=== PATIENT | male | born 1970 | race Caucasian/White ===

== ENCOUNTER 2019-02-09 07:43 | Day surgery (SDC) | payer OTHER, SELFPAY ==
[2019-01-20 15:28] VITALS: BMI 35.9
[2019-02-09] VITALS (10 sets, daily range): BP systolic 133–186; BP diastolic 74–110; PULSE 52–69; RESP 12–18; TEMP 36.1–36.4; O2SAT 82–98; BMI 35.6
--- NOTE | 2019-02-09 07:55 | EKG12_ITS ---
Test Reason : PREOP Blood Pressure : / mmHG Vent. Rate : 054 BPM Atrial Rate : 054 BPM P-R Int : 160 ms QRS Dur : 078 ms QT Int : 414 ms P-R-T Axes : -16 -23 014 degrees QTc Int : 392 ms Sinus bradycardia Otherwise normal ECG When compared with ECG of 03-JUL-2010 13:12, Nonspecific T wave abnormality no longer evident in Lateral leads Confirmed by MER REYNAGA, COLBY ([id number]), online content editor ABENA CUENCA ([id number]) on 02/13/2019 9:50:47 AM Referred By: David Galloway Confirmed By:COLBY DEL ANGEL MD
--- NOTE | 2019-02-09 08:50 | DCINST_ITS ---
Discharge Diet: Light diet - advance as tolerated - if you have questions about your diet instructions, please talk to you doctor. Discharge Activity: May Not Drive - for 3-5 days or while taking narcotic pain medicine. May shower in (days): 1 Lifting Restrictions: 10 pounds Call your doctor if your incision/area has: Continuous Slow Oozing, Sudden Increased Bleeding, Increased Pain/ Swelling, Increased Redness, Foul Smelling Discharge Call your doctor if you observe: Fever of 101 or Higher Suture Line Care: Avoid Pulling/Pushing, Avoid Pinching/Bending Additional Dressing/Incision Instructions:: Change or remove dressing in 4 days. Leave steri-strips in place for 1 week. Allergies/Adverse Reactions: Allergies Sulfa (Sulfonamide Antibiotics) Allergy (Mild, Verified 02/02/19 09:26) Hives Medications to take at Discharge latanoprost 0.005 % eye drops 1 drp OPHTHALMIC QPM 01/20/19 losartan 100 mg tablet 100 mg PO DAILY 01/20/19 propranolol ER 160 mg capsule,24 hr,extended release 160 mg PO DAILY 01/20/19 Hydrocodone Bitart/Apap 5-325 [Chapin 5MG-325MG] 1 tablet PO Q4H PRN PRN 2 Days #8 tablet 02/09/19 The following prescriptions were given: Hydrocodone Bitart/Apap 5-325 [Chapin 5MG-325MG] 1 tablet PO Q4H PRN PRN 2 Days #8 tablet PRN Reason: Pain Primary Care Physician: Rafiq Ulrich MD [Primary Care Provider] - Test Results: Test results from this visit will be discussed in further detail at your follow- up appointment, if applicable. Please Follow Up With: David Galloway MD - [phone] When: Call to make an appointment to be seen in about 10 days.
[2019-02-09] MEDS: Cefazolin 2 GM in 0.9% Normal Saline 100 ML IV (08:52)
--- NOTE | 2019-02-09 09:08 | RAD_ITS ---
STUDY: CHOLANGIOGRAM REASON FOR EXAM: Male, 48 years old. Flank pain Cholecystectomy. FLUOROSCOPY TIME (if supplied): (0:13) minutes/seconds TECHNIQUE: Intraoperative fluoroscopy. For intraoperative views. COMPARISON: None. FINDINGS: There is opacification of cystic duct and common bile duct. No filling defects are seen the common bile duct to suggest retained stone. Contrast flows easily into the duodenum. RAD/Cholangiogram/ O R,Initial IMPRESSION: There is no evidence of retained stones in the common bile duct. Electronically Signed: Niki Henry, at 15:57 EDT Tel , Service support ,
--- NOTE | 2019-02-09 09:50 | GALL_PTH ---
PATIENT: BO LEWIS LOC: [facility] [place] U#:[id number] AGE/SX: 48/M ROOM: RE02/09/[address]: Dr. David Galloway MD : 1970 BED: DIS: 02/09/2019 SPEC #: [id number] RECD: 02/09/19 11:27 STATUS: KATE MCBRIDEBecky #: [id number] LANDON: 02/09/19 09:[address]: David Galloway DEPT: SURGICAL PATHOLOGY RECD BY: Geovanni Bynum ENTERED: 02/09/19 12:09 SP TYPE: CHIKA GUERRA DR: Dr. Rafiq Ulrich MD Tissues: Gallbladder, NOS Procedures: Surgery Specimen Level III HEADER OPERATION: Laparoscopic cholecystectomy with intraoperative cholangiogram PRE-OP DIAGNOSIS: Chronic cholecystitis, gallbladder polyp TISSUE SUBMITTED: Gallbladder MICROSCOPIC DIAGNOSIS Gallbladder, cholecystectomy: Cholesterolosis, chronic cholecystitis and cholelithiasis. AM:rubén 02/10/19 MICROSCOPIC DESCRIPTION Slides are reviewed. GROSS DESCRIPTION Received is one container labeled with the patient's name and designated gallbladder. The specimen consists of a gallbladder measuring 6 x 3 x 1.5 cm. The external surface is smooth and glistening. Focally, it is granular, hemorrhagic and contains cautery artifact. The lumen of the gallbladder contains yellow-green mucoid bile and black calculi ranging in size 0.1 to 0.6 cm. The mucosa is bile-stained and without any mass lesions. The gallbladder wall averages 0.2 cm in thickness and is free of mass lesions. Ruling Machine Feeder sections of the gallbladder and the cystic duct are submitted in one cassette. / AM:rubén 02/09/19 TC:3 CPT: 06925
--- NOTE | 2019-02-09 09:58 | PCM.OPRPT ---
Problem List (1) Chronic cholecystitis Status: Chronic Report of Operation Date of Procedure: 02/09/19 Pre-Operative Diagnosis: Chronic cholecystitis possible cholelithiasis versus gallbladder polyp Post-Operative Diagnosis: Same Surgery/Procedure Performed:: Laparoscopic cholecystectomy with cholangiograms Description of Surgical Findings:: Timeout and informed consent was obtained. 48-year-old gent was taken out from placement table underwent general anesthesia. Ancef 2 g given intravenous preoperatively. The abdomen sterilely prepped and draped. 0.5% Marcaine was used as a local anesthetic. Throughout the procedure total 30 cc was used. Skin sites were pre-anesthetized. A vertical infraumbilical incision was created holding sutures of 0 Vicryl placed varies needle inserted saline drop test performed the abdomen was insufflated with CO2 to a pressure of 10 mmHg pressure. To me trocar inserted 10 lap scope inserted no ventral trocar injuries under direct visitation 5-minute trochars were placed in the epigastric mid abdomen right upper quadrant. The gallbladder had some mild adhesions of omentum to it which could be bluntly dissected free. The mid and apical portion of the gallbladder appeared to be thickened consistent with chronic inflammation. The infundibular area of the gallbladder was nicely dissected free. The critical view was rapidly identified. The cystic duct and cystic artery nicely clearly identified. 2 hemo-lock clips were placed proximally 1 distally on the cystic artery prior to transecting it. Hemo-lock clip was placed on the cystic duct incision made in the cystic duct and through a 14-gauge Angiocath clench Tyson catheter was inserted. Fluoroscopically controlled clench grams were obtained demonstrating normal ductal anatomy and free flow into the small bowel. The clench Tyson catheter was removed and 2 additional hemoclips were placed on the cystic duct prior to transecting it. There was a posterior cystic artery this was secured with a hemo-lock clip. The gallbladder was rather tediously dissected free from the liver bed. There was evidence suggesting chronic inflammation edema and adherence. There were no stone spillage. Very small amount of bile spillage. The gallbladder was completely released and placed him in a retrieval bag. The right upper quadrant was irrigated and aspirated free of excess fluid. A piece of fibrillar was placed in the liver bed as the last portions of dissection was rather tedious due to the amount of inflammation into the liver bed and a portion of the liver bed was taken with the specimen. Hemostasis was nicely intact the fibular nicely was in position. Pressure was held for hemostasis to assure. The right upper quadrant was aspirated free. The gallbladder was exited at the umbilicus. The right upper quadrant was again inspected and noted to be completely hemostatic. The abdomen was allowed to deflate his CO2 trochars removed under visualization. The fascia at the umbilicus approximated interrupted 2-0 Vicryl [id number] suture. Skin edges were approximated interrupted 4 Monocryl subdermal stitches. Steri-Strips and Telfa and OpSite dressings were applied. Sponge and instrument and needle counts were reported the surgeon be correct. Blood loss was minimal. Specimen gallbladder. Drains none. Blood loss minimal. The patient was taken to the recovery area in satisfactory condition. David Galloway M.D., F.A.C.S. Type of Anesthesia:: General Anesthesiologist: Baldomero Brannon
[2019-02-09] MEDS: Bupivacaine Mpf 0.5% 30 ML VIAL (10:02)
--- NOTE | 2019-02-09 10:02 | OP.PCM_ITS ---
Problem List (1) Chronic cholecystitis Status: Chronic Report of Operation Date of Procedure: 02/09/19 Pre-Operative Diagnosis: Chronic cholecystitis possible cholelithiasis versus gallbladder polyp Post-Operative Diagnosis: Same Surgery/Procedure Performed:: Laparoscopic cholecystectomy with cholangiograms Description of Surgical Findings:: Timeout and informed consent was obtained. 48-year-old gent was taken out from placement table underwent general anesthesia. Ancef 2 g given intravenous preoperatively. The abdomen sterilely prepped and draped. 0.5% Marcaine was used as a local anesthetic. Throughout the procedure total 30 cc was used. Skin sites were pre-anesthetized. A vertical infraumbilical incision was created holding sutures of 0 Vicryl placed varies needle inserted saline drop test performed the abdomen was insufflated with CO2 to a pressure of 10 mmHg pressure. To me trocar inserted 10 lap scope inserted no ventral trocar injuries under direct visitation 5-minute trochars were placed in the epigastric mid abdomen right upper quadrant. The gallbladder had some mild adhesions of omentum to it which could be bluntly dissected free. The mid and apical portion of the gallbladder appeared to be thickened consistent with chronic inflammation. The infundibular area of the gallbladder was nicely dissected free. The critical view was rapidly identified. The cystic duct and cystic artery nicely clearly identified. 2 hemo-lock clips were placed proximally 1 distally on the cystic artery prior to transecting it. Hemo-lock clip was placed on the cystic duct incision made in the cystic duct and through a 14- gauge Angiocath clench Tyson catheter was inserted. Fluoroscopically controlled clench grams were obtained demonstrating normal ductal anatomy and free flow into the small bowel. The clench Tyson catheter was removed and 2 additional hemoclips were placed on the cystic duct prior to transecting it. There was a posterior cystic artery this was secured with a hemo-lock clip. The gallbladder was rather tediously dissected free from the liver bed. There was evidence suggesting chronic inflammation edema and adherence. There were no s tone spillage. Very small amount of bile spillage. The gallbladder was completely released and placed him in a retrieval bag. The right upper quadrant was irrigated and aspirated free of excess fluid. A piece of fibrillar was placed in the liver bed as the last portions of dissection was rather tedious due to the amount of inflammation into the liver bed and a portion of the liver bed was taken with the specimen. Hemostasis was nicely intact the fibular nicely was in position. Pressure was held for hemostasis to assure. The right upper quadrant was aspirated free. The gallbladder was exited at the umbilicus. The right upper quadrant was again inspected and noted to be completely hemostatic. The abdomen was allowed to deflate his CO2 trochars removed under visualization. The fascia at the umbilicus approximated interrupted 2-0 Vicryl [id number] suture. Skin edges were approximated interrupted 4 Monocryl subdermal stitches. Steri-Strips and Telfa and OpSite dressings were applied. Sponge and instrument and needle counts were reported the surgeon be correct. Blood loss was minimal. Specimen gallbladder. Drains none. Blood loss minimal. The patient was taken to the recovery area in satisfactory condition. David Galloway M.D., F.A.C.S. Type of Anesthesia:: General Anesthesiologist: Baldomero Brannon
[2019-02-09] MEDS: HYDROcodone Bitartrate/Apap 5/325 Tablet PO (13:28)
== END 2019-02-09 14:26 | disposition home or self-care (01) ==
LOC: SDC 07:44 → AC 07:45
PROVIDERS: Family Provider Family Medicine; PCP Family Medicine; Referring Provider Surgery; Visit Provider Surgery
PROC: (CPT 47610; principal; 2019-02-09 09:30)
DX: K80.10 Calculus of gallbladder with chronic cholecystitis without obstruction (principal); I10 Essential (primary) hypertension; Z79.899 Other long term (current) drug therapy; Z87.891 Personal history of nicotine dependence
CPT/HCPCS: 47563; 74300; 76000; 88304; 93005; J7120; A4216; J2405

== ENCOUNTER 2020-07-22 05:28 | Day surgery (SDC) | payer OTHER, SELFPAY ==
[2019-02-09 08:27] VITALS: BMI 35.6
[2020-07-22] VITALS (10 sets, daily range): BP systolic 116–157; BP diastolic 78–121; PULSE 61–71; RESP 16; TEMP 35.8–36.2; O2SAT 92–100; BMI 36.3
[2020-07-22] MEDS: Lactated Ringers 1,000 ML 100 ML IV (06:11)
--- NOTE | 2020-07-22 06:21 | PCM.HP.STD ---
Problem List (1) Screening for intestinal cancer Status: Acute History of Present Illness Date of Admission: 07/22/20 The patient is a 49 year old M who presents for screening colonoscopy today. His most recent colonoscopy was 10 years ago. He has a family history of a maternal grandmother who had colon cancer. He presents via open access. He has not had any GI symptoms. No abdominal pain. No bright red blood per rectum or melena. No weight loss. Past Medical History Past Medical History (Chronic Problems): Chronic Problems (Last Updated 01/20/19 @ 15:25 by Venita Reyna) Chronic cholecystitis (Chronic) Medical History: Medical History (Last Updated 01/20/19 @ 15:25 by Venita Reyna) Gallbladder polyp (Acute) K82.4 Chronic cholecystitis (Chronic) K81.1 Hemorrhoid K64.9 HTN (hypertension) I10 Allergies Sulfa (Sulfonamide Antibiotics) Allergy (Mild, Verified 07/22/20 05:43) Hives Home Medications: Ambulatory Orders Medication Instructions Recorded latanoprost 0.005 % eye drops 1 drp OPHTHALMIC QPM 01/20/19 losartan 100 mg tablet 100 mg PO DAILY 01/20/19 propranolol 160 mg capsule,24 160 mg PO DAILY 01/20/19 hr,extended release Multivitamin with Minerals 1 tab PO DAILY 07/22/20 [Multiple Vitamin] Surgical History: Surgical History (Last Updated 02/19/19 @ 09:30 by Venita Reyna) History of carpal tunnel release Z98.890 History of cholecystectomy Onset Date: ~01/2019 Z90.49 History of colonoscopy Onset Date: ~2009 Z98.890 Smoking Status: Never smoker Review of Systems Constitutional: Denies: Fever HEENT: Denies: Difficulty Swallowing Cardiovascular: Denies: Chest Pain Respiratory: Denies: Cough Gastrointestinal: Denies: Abdominal Pain, Melena Endocrine: Denies: Change in Body Habitus VTE Information - Inpt Only VTE Present on Admission: No Patient Problems: Active and Suspected Problems (Last Updated 01/20/19 @ 15:25 by Venita Reyna) Screening for intestinal cancer (Acute) - Physical Exam Vitals/I&O's: Vital Signs Temp Pulse Resp BP Pulse Ox 97.1 F L 64 16 129/84 H 99 07/22/20 05:47 07/22/20 05:47 07/22/20 05:47 07/22/20 05:47 07/22/20 05:47 Oxygen Delivery Method Room Air Weight: 218 lb 0.595 oz Body Mass Index (BMI) 36.3 General: Alert, Oriented x3, Cooperative, No apparent distress HEENT: Atraumatic Lungs: Clear to auscultation, Normal air movement Cardiovascular: Regular rate, Regular Rhythm Abdomen: Bowel Sounds Present, Soft, Non Tender, Distended, Obese Extremities: No Calf Tenderness Psych/Mental Status: Normal Affect Current Medications Lactated Ringer's () 1,000 mls @ 100 mls/hr IV .Q10H KATY Last Admin: 07/22/20 06:11 Dose: 100 mls/hr Documented by: Assessment/Plan All Active Problems (Last Updated 01/20/19 @ 15:25 by Venita Reyna) Screening for intestinal cancer (Acute) History of colonoscopy (Acute ~2009) Gallbladder polyp (Acute) I recommend to the patient a screening colonoscopy with possible biopsy or polypectomy is indicated. He is aware of the technique, benefit, risk, alternatives. He presents via open access. We will proceed as noted. David Galloway M.D., F.A.C.S.
--- NOTE | 2020-07-22 06:45 | OP.CCLET_ITS ---
07/22/2020 Rafiq Ulrich Md Re : Colonoscopy procedure for Jose Manuel Das Mojgan This procedure was performed on Wednesday, July 22, 2020. My impressions and recommendations are as follows: Impressions : - Anal stricture, non-thrombosed internal hemorrhoids and internal hemorrhoids that prolapse with straining, but spontaneously regress to the resting position (Grade II) found on digital rectal exam. - Diverticulosis in the sigmoid colon. - The examination was otherwise normal. - No specimens collected. Recommendations : - Discharge patient to home. - Resume previous diet. - Continue present medications. - Repeat colonoscopy in 10 years for screening purposes. My findings are described in the full procedure note, which is enclosed. If I can be of further assistance, please feel free to contact me at Doctor phone number(s): Work: . Sincerely, David Galloway MD 07/22/2020 6:44:10 AM This report has been signed electronically.
--- NOTE | 2020-07-22 06:45 | OP.COLON_ITS ---
Patient Name: Jose Manuel Hunter Procedure Date: 07/22/2020 6:02 AM Date of : 1970 Age: 49 Procedure: Colonoscopy Indications: Screening for colorectal malignant neoplasm Providers: David Galloway MD Referring MD: David Galloway MD Medicines: Midazolam 3.5 mg IV, Meperidine 75 mg IV, Diphenhydramine 25 mg IV Patient Profile: Last Colonoscopy: 10 years ago. Complications: No immediate complications. Procedure: Pre-Anesthesia Assessment: - Prior to the procedure, a History and Physical was performed, and patient medications and allergies were reviewed. The patient's tolerance of previous anesthesia was also reviewed. The risks and benefits of the procedure and the sedation options and risks were discussed with the patient. All questions were answered, and informed consent was obtained. Prior Anticoagulants: The patient has taken no previous anticoagulant or antiplatelet agents. ASA Grade Assessment: II - A patient with mild systemic disease. After reviewing the risks and benefits, the patient was deemed in satisfactory condition to undergo the procedure. After I obtained informed consent, the scope was passed under direct vision. Throughout the procedure, the patient's blood pressure, pulse, and oxygen saturations were monitored continuously. The colonoscope was introduced through the anus and advanced to the cecum, identified by appendiceal orifice and ileocecal valve. The colonoscopy was performed without difficulty. The patient tolerated the procedure well. The quality of the bowel preparation was good. The ileocecal valve and the appendiceal orifice were photographed. Moderate Sedation: Moderate (conscious) sedation was personally administered by the endoscopist. The following parameters were monitored: oxygen saturation, heart rate, blood pressure, and response to care. Total physician intraservice time was 15 minutes. Scope In: 6:30:47 AM Scope Withdrawal Time 0 hours 6 minutes 34 seconds Scope Out: 6:40:06 AM Total Procedure Duration Time 0 hours 9 minutes 19 seconds Findings: The digital rectal exam findings include anal stricture, non-thrombosed internal hemorrhoids and internal hemorrhoids that prolapse with straining, but spontaneously regress to the resting position (Grade II). Pertinent negatives include normal prostate (size, shape, and consistency). Scattered diverticula were found in the sigmoid colon. The exam was otherwise without abnormality. Impression: - Anal stricture, non-thrombosed internal hemorrhoids and internal hemorrhoids that prolapse with straining, but spontaneously regress to the resting position (Grade II) found on digital rectal exam. - Diverticulosis in the sigmoid colon. - The examination was otherwise normal. - No specimens collected. Recommendation: - Discharge patient to home. - Resume previous diet. - Continue present medications. - Repeat colonoscopy in 10 years for screening purposes. Procedure Code(s): --- Professional --- 32196, Colonoscopy, flexible; diagnostic, including collection of specimen(s) by brushing or washing, when performed (separate procedure) 42414, 59, Moderate sedation services provided by the same physician or other qualified health urgent care nurse practitioner performing the diagnostic or therapeutic service that the sedation supports, requiring the presence of an independent trained observer to assist in the monitoring of the patient's level of consciousness and physiological status; initial 15 minutes of intraservice time, patient age 5 years or older Diagnosis Code(s): --- Professional --- Z12.11, Encounter for screening for malignant neoplasm of colon K62.4, Stenosis of anus and rectum K64.1, Second degree hemorrhoids K57.30, Diverticulosis of large intestine without perforation or abscess without bleeding CPT copyright 2017 [employer]. All rights reserved. The codes documented in this report are preliminary and upon wharf laborer review may be revised to meet current compliance requirements. David Galloway MD 07/22/2020 6:44:10 AM This report has been signed electronically. Number of Addenda: 0 Note Initiated On: 07/22/2020 6:02 AM
== END 2020-07-22 08:01 | disposition home or self-care (01) ==
LOC: EN 05:29 → AC 05:31
PROVIDERS: PCP Family Medicine; Referring Provider Surgery; Visit Provider Surgery
PROC: 0DJD8ZZ Inspection of Lower Intestinal Tract, Via Natural or Artificial Opening Endoscopic (ICD-10-PCS; CPT 45378; principal; 2020-07-22 06:25)
DX: Z12.11 Encounter for screening for malignant neoplasm of colon (principal); Z11.59 Encounter for screening for other viral diseases; K57.30 Diverticulosis of large intestine without perforation or abscess without bleeding; K62.4 Stenosis of anus and rectum; K64.1 Second degree hemorrhoids; I10 Essential (primary) hypertension; Z79.899 Other long term (current) drug therapy
CPT/HCPCS: 45378; 87635; 94799; 99152; 99153; J7120; U0003